=== PATIENT | female | born 1995 | race Caucasian/White ===

== ENCOUNTER 2020-03-13 08:19 | Emergency (ER) | payer OTHER, MEDICAID, SELFPAY ==
--- NOTE | 2020-03-13 08:24 | ED.GENADULT ---
HPI - General Adult General Chief complaint: Upper Respiratory Infection Stated complaint: Sinus Pressure Time Seen by Provider: 03/13/20 08:50 Source: patient Mode of arrival: ambulatory Limitations: no limitations History of Present Illness HPI narrative: 24-year-old female patient presents to the [facility] with complaints of cold symptoms for the past week. Patient states she is currently 11 weeks . Patient states she has been trying her oktk-ymj-[id number] Zyrtec that she takes daily but denies any other medications for her symptoms. Patient states she has had a lot of runny nose, stuffy nose a little bit of pressure under the eyes. And states that she has some pressure to bilateral ears intermittently. Patient denies any sore throat, coughing, chest pain or shortness of breath. Denies any fevers, body aches or chills. Related Data Home Medications Medication Instructions Recorded Confirmed PNV 119-iron fum-folic acid 1 tablet PO DAILY 03/13/20 03/13/20 [Se--19] docusate sodium [Colace] 100 mg PO DAILY 03/13/20 03/13/20 Allergies Allergy/AdvReac Type Severity Reaction Status Date / Time adhesive Allergy Unknown Unknown Verified 03/13/20 08:43 latex Allergy Unknown Unknown Verified 03/13/20 08:43 Review of Systems Review of Systems: Narrative: CONSTITUTIONAL: Denies fever, chills, or sweats. EYES: Denies visual changes, redness, or discharge. ENT: Positive rhinorrhea, congestion, denies sore throat, positive bilateral intermittent otalgia. CARDIOVASCULAR: Denies chest pain, palpitations, or edema. RESPIRATORY: Denies cough or dyspnea. GASTROINTESTINAL: Denies abdominal pain, nausea, vomiting, or diarrhea. GENITOURINARY: Denies dysuria or hematuria. SKIN: Denies rash or itching. MUSCULOSKELETAL: Denies back pain, joint pain, or myalgia. NEUROLOGIC: Denies headache, numbness, or weakness. PSYCHIATRIC: Denies anxiety or depression. [facility] Past Medical History Medical History (Updated 03/13/20 @ 09:00 by SANJUANITA Amezcua) Asthma Bipolar disorder Migraines Surgical History Surgical History (Updated 03/13/20 @ 08:51 by SANJUANITA Amezcua) History of orthopedic surgery Right knee scope History of tonsillectomy Social History Social History Gender identity (if verbalized by the patient): Female Comments At the time of my signature I agree with nursing past medical history, surgical, social, and family history. There is no relevant family history pertinent to the presenting complaint. Exam Narrative: Exam Narrative: GENERAL: Well-appearing, well-nourished, and in no acute distress. HEAD: Normocephalic, atraumatic. EYES: PERRLA and EOMI. ENT: Nares with erythema and edema noted bilaterally with the left nare swollen shut., no rhinorrhea or epistaxis. Mucous membranes moist. Bilateral TMs are clear no erythema or foreign bodies to the canal. Posterior pharynx with no erythema, tonsil enlargement, exudates or lesions present. NECK: Supple. No lymphadenopathy CHEST: Clear to auscultation. No respiratory distress. HEART: Regular rate and rhythm. No murmur heard. Normal peripheral pulses. ABDOMEN: Soft, nontender, nondistended, normal active bowel sounds. EXTREMITIES: Normal range of motion. No edema. SKIN: Warm, dry, no rash. NEURO: No focal deficits. Alert and oriented x3. Course Vital Signs Vital signs: Vital Signs Temperature 36.4 C 03/13/20 08:32 Pulse Rate 96 03/13/20 08:32 Respiratory Rate 16 03/13/20 08:32 Blood Pressure 114/72 03/13/20 08:32 Pulse Oximetry 99 03/13/20 08:32 Temperature 36.4 C 03/13/20 08:32 Pulse Rate 96 03/13/20 08:32 Respiratory Rate 16 03/13/20 08:32 Blood Pressure 114/72 03/13/20 08:32 Pulse Oximetry 99 03/13/20 08:32 Vital signs reviewed Medical Decision Making Differential Diagnosis Differential Diagnosis: Differential diagnosis: Allergic rhinitis, chr
[2020-03-13 08:32] VITALS: BP 114/72; PULSE 96; RESP 16; TEMP 36.4; O2SAT 99
== END 2020-03-13 09:05 | disposition home or self-care (01) ==
PROVIDERS: Emergency Provider Nurse Practitioner Family; PCP Family Medicine
DX: O99.511 Diseases of the respiratory system complicating pregnancy, first trimester (principal); Z3A.11 11 weeks gestation of pregnancy; J00 Acute nasopharyngitis [common cold]; J01.90 Acute sinusitis, unspecified; J30.9 Allergic rhinitis, unspecified; J45.909 Unspecified asthma, uncomplicated
CPT/HCPCS: 99211; G0463

== ENCOUNTER 2020-03-16 17:58 | Emergency (ER) | payer OTHER, MEDICAID, SELFPAY ==
[2020-03-16 18:00] VITALS: BP 149/80; PULSE 93; RESP 16; TEMP 36.4; O2SAT 99
--- NOTE | 2020-03-16 19:35 | ED.URI ---
HPI - URI/Sore Throat General Chief Complaint: Upper Respiratory Infection Stated Complaint: NASAL CONGESTION AND EAR PAIN Time Seen by Provider: 03/16/20 18:12 Source: patient Mode of arrival: ambulatory Limitations: no limitations History of Present Illness HPI Narrative: Patient presents with chief complaint of congestion in her ears over the past 2 weeks. Patient states that she has been taking Zyrtec and was seen at the urgent care but I told her that her ears were not infected at that time and if symptoms persist a few more days to have them reexamined. Patient states that she feels that her ears have been draining down the back of her throat because she has some soreness. Patient denies fever, chills, nausea, vomiting, diarrhea. Patient states she was instructed not to take decongestants or which she could take for discomfort due to being . Related Data Home Medications Medication Instructions Recorded Confirmed PNV 119-iron fum-folic acid 1 tablet PO DAILY 03/13/20 03/13/20 [Se--19] docusate sodium [Colace] 100 mg PO DAILY 03/13/20 03/13/20 cetirizine [Zyrtec] mg 03/16/20 03/16/20 Allergies Allergy/AdvReac Type Severity Reaction Status Date / Time adhesive Allergy Unknown Unknown Verified 03/16/20 18:16 latex Allergy Unknown Unknown Verified 03/16/20 18:16 Review of Systems Review of Systems: Narrative: CONSTITUTIONAL: Denies fever, chills, or sweats. EYES: Denies visual changes, redness, or discharge. ENT: Reports congestion sore throat and otalgia denies rhinorrhea CARDIOVASCULAR: Denies chest pain, palpitations, or edema. RESPIRATORY: Denies cough or dyspnea. GASTROINTESTINAL: Denies abdominal pain, nausea, vomiting, or diarrhea. GENITOURINARY: Denies dysuria or hematuria. SKIN: Denies rash or itching. MUSCULOSKELETAL: Denies back pain, myalgia, or joint pain NEUROLOGIC: Denies headache, numbness, dizziness, or weakness. PSYCHIATRIC: Denies anxiety or depression. [facility] Past Medical History Medical History (Updated 03/16/20 @ 19:40 by Sulaiman Albarran PA-C) Asthma Bipolar disorder Migraines Surgical History Surgical History (Updated 03/13/20 @ 08:51 by SANJUANITA Amezcua) History of orthopedic surgery Right knee scope History of tonsillectomy Social History Social History Gender identity (if verbalized by the patient): Female Exam Narrative: Exam Narrative: GENERAL: Well-appearing, well-nourished, and in no acute distress. HEAD: Normocephalic, atraumatic. EYES: PERRLA and EOMI. ENT: Nares clear, no rhinorrhea or epistaxis. Mucous membranes moist. nasal passages mildly congested right. Oropharynx without tonsillar hypertrophy exudate or other lesions. Bilateral TMs pearly valderrama right bulging with clear serous fluid noted. NECK: Supple. No adenopathy or masses. No carotid bruits or JVD CHEST: Clear to auscultation. No respiratory distress. No wheezes rales or rhonchi HEART: Regular rate and rhythm. No murmur heard. Normal peripheral pulses. EXTREMITIES: Normal range of motion. No edema. SKIN: Warm, dry, no rash. NEURO: No focal deficits. Alert and oriented x3. PSYCH: Normal mood and affect. Course Vital Signs Vital signs: Vital Signs Temperature 97.6 F 03/16/20 18:00 Pulse Rate 93 03/16/20 18:00 Respiratory Rate 16 03/16/20 18:00 Blood Pressure 149/80 H 03/16/20 18:00 Pulse Oximetry 99 03/16/20 18:00 Temperature 97.6 F 03/16/20 18:00 Pulse Rate 93 03/16/20 18:00 Respiratory Rate 16 03/16/20 18:00 Blood Pressure 149/80 H 03/16/20 18:00 Pulse Oximetry 99 03/16/20 18:00 MDM - URI/Sore Throat Differential Diagnosis Differential diagnosis: Likely upper respiratory infection, croup, otitis media, sinusitis, viral infection, bronchitis, influenza and pharyngitis Discharge Plan Discharge Clinical Impression: Acute serous otitis media Qualifiers: Laterality: bilateral
== END 2020-03-16 19:54 | disposition home or self-care (01) ==
PROVIDERS: Emergency Provider Emergency Medicine; PCP Family Medicine
DX: H65.03 Acute serous otitis media, bilateral (principal); J02.9 Acute pharyngitis, unspecified; J45.909 Unspecified asthma, uncomplicated; F31.9 Bipolar disorder, unspecified
CPT/HCPCS: 87880; 99283

== ENCOUNTER 2021-05-29 14:32 | Emergency (ER) | payer OTHER, MEDICAID, SELFPAY ==
[2021-05-29 14:44] VITALS: BP 124/72; PULSE 76; RESP 16; TEMP 37.1; O2SAT 100
--- NOTE | 2021-05-29 15:08 | ED.URI ---
HPI - URI/Sore Throat General Chief Complaint: Upper Respiratory Infection Stated Complaint: Sinus Time Seen by Provider: 05/29/21 15:08 Source: patient, RN notes reviewed and old records reviewed Mode of arrival: ambulatory Limitations: no limitations History of Present Illness HPI Narrative: 26-year-old female presents to the [facility] with complaints of sinus congestion along with a frontal headache for 3 days. Denies any nausea vomiting or diarrhea. Denies chest pain or abdominal pain. She is completely flu and Covid vaccinated. Related Data Allergies Allergy/AdvReac Type Severity Reaction Status Date / Time adhesive Allergy Unknown Unknown Verified 05/29/21 15:28 latex Allergy Unknown Unknown Verified 05/29/21 15:28 Review of Systems Review of Systems: All systems reviewed & are unremarkable except as noted in HPI and below Constitutional: Constitutional: Reports as per HPI, Denies chills, Reports fatigue and Reports fever(s) Eyes: Eyes: Reports no additional eye complaints ENT: Reports nasal congestion Cardiovascular: Cardiovascular: Reports no additional cardiovascular complaints and Denies chest pain Respiratory: Respiratory: Reports no additional respiratory complaints, Denies cough and Denies dyspnea Gastrointestinal: Gastrointestinal: Reports no additional gastrointestinal complaints, Denies abdominal pain, Denies nausea and Denies vomiting Musculoskeletal: Musculoskeletal: Reports no additional musculoskeletal complaints Integumentary/Breasts: Skin/Breast: Reports system reviewed and no additional complaints, except as docu Neurologic: Reports as per HPI and Reports headache(s) Psychiatric: Psychiatric: Reports no additional psychiatric complaints Allergic/Immunologic: Allergic/Immunologic: Reports no additional allergic/immunologic complaints PMFSH Past Medical History Medical History Asthma Bipolar disorder Migraines Surgical History Surgical History History of orthopedic surgery Right knee scope History of tonsillectomy Social History Social History Gender identity (if verbalized by the patient): Female Comments At the time of my signature, I reviewed and agree with the nursing past medical, surgical, social, and family history. There is no relevant family history pertinent to the patient complaint. Exam Const: General: healthy appearing, no acute distress and alert Nutritional Appearance: well nourished Orientation/consciousness: patient oriented x3 Limitations: no limitations HENMT: Head: normal to inspection Ears: external ears normal, TM's normal bilaterally and EAC's normal General nose exam: Abnormal mucous membranes and turbinates present boggy bilateral; not erythematous and Nasal discharge present clear Face and sinus: normal facial exam, no ecchymosis, no erythema and sinus tenderness frontal and maxillary Mouth: Yes Normal oral and palatal mucosa present Throat: posterior oropharynx normal, uvula midline, postnasal drainage and tonsils absent Eyes: Pupils: Equal, round and reactive pupils present Direct Ophthalmoscopy: no photophobia Neck: Neck: normal visual inspection, no lymphadenopathy and no meningeal signs Resp: Effort & Inspection: normal respiratory effort and no use of accessory muscles Auscultation: clear to auscultation bilaterally, no crackles, no rales, no rhonchi and no wheezes Cardio: Rate: regular rate Rhythm: regular rhythm GI: GI Palp: Yes Soft to palpation Back/Spine/Pelvis: Back: no CVA tenderness Skin: General skin exam: normal color Rashes: no rashes Wounds: no wounds Neuro: General: patient oriented x3, moves all extremities, no meningeal signs and no focal motor deficits Speech: normal speech Gait exam (Neuro): Normal gait present Extrem: General: normal to inspection Psych: Appeara
== END 2021-05-29 15:40 | disposition home or self-care (01) ==
PROVIDERS: Emergency Provider Nurse Practitioner; PCP Family Medicine
DX: J32.9 Chronic sinusitis, unspecified (principal); J45.909 Unspecified asthma, uncomplicated
CPT/HCPCS: 99213; G0463

== ENCOUNTER 2021-06-18 08:21 | Emergency (ER) | payer OTHER, MEDICAID, SELFPAY ==
--- NOTE | 2021-06-18 08:24 | ED.URI ---
HPI - URI/Sore Throat General Chief Complaint: Upper Respiratory Infection Stated Complaint: Sinus Infection Time Seen by Provider: 06/18/21 08:27 Source: patient, family, RN notes reviewed and old records reviewed Mode of arrival: ambulatory Limitations: no limitations History of Present Illness HPI Narrative: 26-year-old female presents to the [facility] with complaints of sinus pain and pressure for at least the last 10 days. Was evaluated on 29 May for same complaint. Patient states that over the last 10 days it is gotten worse. Has tried multiple mmnh-[id number]-skajqyg products with minimal to no relief. MD elicited complaint: sinus pain Related Data Allergies Allergy/AdvReac Type Severity Reaction Status Date / Time adhesive Allergy Unknown Unknown Verified 06/18/21 08:31 latex Allergy Unknown Unknown Verified 06/18/21 08:31 Review of Systems Review of Systems: All systems reviewed & are unremarkable except as noted in HPI and below Constitutional: Constitutional: Reports no additional constitutional complaints, Denies chills, Denies fever(s) and Denies headache(s) Eyes: Eyes: Reports no additional eye complaints ENT: Reports as per HPI, Denies vertigo, Denies dizziness, Denies headache(s), Reports nasal congestion and Denies sore throat Cardiovascular: Cardiovascular: Reports no additional cardiovascular complaints, Denies chest pain, Denies syncope, Denies rapid heart rate and Denies dyspnea Respiratory: Respiratory: Reports no additional respiratory complaints, Denies cough, Denies dyspnea and Denies wheezing Gastrointestinal: Gastrointestinal: Reports no additional gastrointestinal complaints, Denies abdominal pain, Denies diarrhea, Denies nausea and Denies vomiting Musculoskeletal: Musculoskeletal: Reports no additional musculoskeletal complaints and Denies numbness Integumentary/Breasts: Skin/Breast: Reports system reviewed and no additional complaints, except as docu Neurologic: Reports system reviewed and no additional complaints, except as documented, Denies vertigo, Denies dizziness, Denies syncope, Denies headache(s), Denies focal weakness and Denies numbness Psychiatric: Psychiatric: Reports no additional psychiatric complaints Allergic/Immunologic: Allergic/Immunologic: Reports no additional allergic/immunologic complaints and Denies wheezing PMFSH Past Medical History Medical History Asthma Bipolar disorder Migraines Surgical History Surgical History History of orthopedic surgery Right knee scope History of tonsillectomy Social History Social History Gender identity (if verbalized by the patient): Female Comments At the time of my signature, I reviewed and agree with the nursing past medical, surgical, social, and family history. There is no relevant family history pertinent to the patient complaint. Exam Const: General: cooperative, healthy appearing, no acute distress, well developed and alert Nutritional Appearance: well nourished Orientation/consciousness: patient oriented x3 Limitations: no limitations HENMT: Head: normal to inspection Ears: external ears normal and EAC's normal General nose exam: Normal external nose present, Abnormal mucous membranes and turbinates present boggy bilateral; not erythematous and no nasal discharge noted Face and sinus: sinus tenderness maxillary Mouth: Yes moist mucous membranes Throat: uvula midline, postnasal drainage, tonsils absent and no uvular edema Eyes: Conjunctivae: conjunctivae normal Pupils: Equal, round and reactive pupils present Neck: Neck: normal visual inspection, no lymphadenopathy and no meningeal signs Chest: Chest palpation & inspection: normal inspection of the chest Resp: Effort & Inspection: normal respiratory effort and no use of accessory muscles Auscultation: clear to ausculta
[2021-06-18 08:28] VITALS: BP 133/54; PULSE 99; RESP 20; TEMP 36; O2SAT 99
== END 2021-06-18 08:49 | disposition home or self-care (01) ==
PROVIDERS: Emergency Provider Nurse Practitioner; PCP Family Medicine
DX: J01.40 Acute pansinusitis, unspecified (principal); J45.909 Unspecified asthma, uncomplicated
CPT/HCPCS: 99213; G0463

== ENCOUNTER 2021-09-03 18:20 | Emergency (ER) | payer OTHER, SELFPAY ==
--- NOTE | 2021-09-03 18:26 | ED.URI ---
HPI - URI/Sore Throat General Chief Complaint: Upper Respiratory Infection Stated Complaint: Uri Time Seen by Provider: 09/03/21 18:45 Source: patient and RN notes reviewed Mode of arrival: ambulatory Limitations: no limitations History of Present Illness HPI Narrative: 26-year-old female presents with 1-1/2-week history of sinus pressure, congestion, purulent nasal drainage. Reports taking lhlg-lfr-hjgjtag medications without relief. Reports other family members who are ill. She denies cough, shortness of breath, body aches, chills, fever, sweats. Reports ear pressure MD elicited complaint: rhinorrhea, nasal congestion and sinus pain Related Data Home Medications Medication Instructions Recorded Confirmed cetirizine [Zyrtec] 10 mg PO DAILY 09/03/21 09/03/21 Allergies Allergy/AdvReac Type Severity Reaction Status Date / Time adhesive Allergy Unknown Unknown Verified 09/03/21 18:27 latex Allergy Unknown Unknown Verified 09/03/21 18:27 Review of Systems Review of Systems: CONSTITUTIONAL: Denies malaise, chills, sweats, or fever. EYES: Denies visual changes, redness, or discharge. ENT: Reports rhinorrhea, congestion, sinus pain, otalgia. Denies sore throat. CARDIOVASCULAR: Denies chest pain, palpitations, or edema. RESPIRATORY: Denies cough. Denies dyspnea. GASTROINTESTINAL: Denies abdominal pain, nausea, vomiting, diarrhea SKIN: Denies rash or itching. MUSCULOSKELETAL: Denies myalgia. NEUROLOGIC: Denies headache. All systems reviewed & are unremarkable except as noted in HPI and below PMFSH Past Medical History Medical History Asthma Bipolar disorder Migraines Surgical History Surgical History History of orthopedic surgery Right knee scope History of tonsillectomy Social History Social History Gender identity (if verbalized by the patient): Female Comments At time of signature, agree with nursing past medical, surgical, social and family history. There is no relevant family history pertinent to the presenting complaint Exam Narrative: GENERAL: Well-appearing, well-nourished, and in no acute distress. HEAD: Normocephalic EYES: PERRLA, conjunctivae clear ENT: Nares clear, turbinates edematous and erythematous, sinus tenderness. Mucous membranes moist. TM pearly valderrama with dull light reflex bilaterally; no tragal tenderness. Oropharynx not erythematous without lesions. Tonsils not enlarged and without exudate, no drooling, no hoarseness, no trismus, uvula midline. NECK: Supple. No lymphadenopathy CHEST: Clear to auscultation, breath sounds equal. No wheezing, rhonchi, rales, or stridor. No respiratory distress, speaks in full sentences. HEART: Regular rate and rhythm. No murmur heard. SKIN: Warm, dry, no rash. NEURO: Alert and oriented x3. PSYCH: Normal mood and affect Course Course Emergency Course: Patient is aware of diagnosis, understands and agrees to treatment plan. Anticipatory guidance given. Patient agrees to follow-up as directed and is aware of reasons to seek care at the emergency department. Portions of this record may have been created with voice recognition software Level of Care: Express Care Visit Vital Signs Vital signs: Reviewed. MDM - URI/Sore Throat MDM Narrative Medical decision making narrative: Differential diagnosis considered: Martinez virus, strep pharyngitis, allergic rhinitis, upper respiratory tract infection, sinusitis, rhinosinusitis, nasopharyngitis. viral pharyngitis, otitis media, otitis externa, pneumonia, bronchitis, viral cough syndrome, viral syndrome, and influenza. Exam findings show no acute concerns or changes; patient is non-toxic appearing and is in no distress. Patient is appropriate for outpatient treatment and follow-up. Lab Data Attestation: I reviewed the patient's lab results. Critical Care Time Criti
[2021-09-03 18:36] VITALS: BP 119/74; PULSE 88; RESP 16; TEMP 36.4; O2SAT 99
== END 2021-09-03 19:05 | disposition home or self-care (01) ==
PROVIDERS: Emergency Provider Nurse Practitioner
DX: J01.90 Acute sinusitis, unspecified (principal); J45.909 Unspecified asthma, uncomplicated
CPT/HCPCS: 99213; G0463

== ENCOUNTER 2021-10-28 08:25 | Emergency (ER) | payer BC, SELFPAY ==
[2021-10-28 08:43] VITALS: BP 109/85; PULSE 96; RESP 16; TEMP 36.9; O2SAT 99
--- NOTE | 2021-10-28 09:09 | ED.URI ---
HPI - URI/Sore Throat General Chief Complaint: Upper Respiratory Infection Stated Complaint: uri Time Seen by Provider: 10/28/21 09:09 Source: patient Mode of arrival: ambulatory Limitations: no limitations History of Present Illness HPI Narrative: 26-year-old female presents with complaint of sore throat, sinus congestion, bilateral ear pain, postnasal drainage, mild cough for 3 to 4 days. Afebrile. No chest pain or shortness of breath. Reports throat is really sore . Daughter is also ill with similar symptoms. Patient taking qqjy-ywq-exsyowr cold and flu medication with little relief. All systems reviewed and negative except as noted above. Related Data Allergies Allergy/AdvReac Type Severity Reaction Status Date / Time adhesive Allergy Unknown Unknown Verified 10/28/21 09:27 latex Allergy Unknown Unknown Verified 10/28/21 09:27 Review of Systems Review of Systems: CONSTITUTIONAL: Denies fever, chills, or sweats. EYES: Denies visual changes, redness, or discharge. ENT: Reports rhinorrhea, congestion, sore throat and otalgia. CARDIOVASCULAR: Denies chest pain, palpitations, or edema. RESPIRATORY: Reports cough. Denies dyspnea. GASTROINTESTINAL: Denies abdominal pain, nausea, vomiting, or diarrhea. GENITOURINARY: Denies dysuria or hematuria. SKIN: Denies rash or itching. MUSCULOSKELETAL: Denies back pain, joint pain, or myalgia. NEUROLOGIC: Denies headache, numbness, or weakness. PSYCHIATRIC: Denies anxiety or depression. All other systems reviewed are negative, except as documented in HPI. PMFSH Past Medical History Medical History Asthma Bipolar disorder Migraines Surgical History Surgical History History of orthopedic surgery Right knee scope History of tonsillectomy Social History Social History Gender identity (if verbalized by the patient): Female Comments At time of signature, agree with nursing past medical, surgical, social and family history. There is no relevant family history pertinent to the presenting complaint. Exam Narrative: GENERAL: This is a well-nourished, well-developed patient, in no apparent distress. HEAD: normocephalic, atraumatic. EYES: PERRL. Sclera clear/white. Vision is grossly intact. EARS: External ears normal, auditory canals clear and without drainage, mild fluid to bilateral TMs no erythema or perforation. NOSE: External nose normal with clear nasal drainage. THROAT: Mucous membranes moist, posterior pharynx clear. NECK: Neck supple, non-tender without lymphadenopathy, masses or thyromegaly. CARDIOVASCULAR: Regular rate and rhythm without murmurs, gallops, or rubs. RESPIRATORY: Clear to auscultation. Breath sounds equal bilaterally. No wheezes, rales, or rhonchi. SKIN: warm, Dry, intact with no suspicious lesions or rash, good texture and turgor. NEURO: awake, alert, and oriented to person, place and time. There were no obvious focal neurologic abnormalities. EXTREMITIES: Normal range of motion to all extremities. Course Course Level of Care: Express Care Visit Vital Signs Vital signs: Vital Signs Temperature 36.9 C 10/28/21 08:43 Pulse Rate 96 10/28/21 08:43 Respiratory Rate 16 10/28/21 08:43 Blood Pressure 109/85 10/28/21 08:43 Pulse Oximetry 99 10/28/21 08:43 Oxygen Delivery Room Air 10/28/21 08:43 Temperature 36.9 C 10/28/21 08:43 Pulse Rate 96 10/28/21 08:43 Respiratory Rate 16 10/28/21 08:43 Blood Pressure 109/85 10/28/21 08:43 Pulse Oximetry 99 10/28/21 08:43 Oxygen Delivery Room Air 10/28/21 08:43 Reviewed MDM - URI/Sore Throat MDM Narrative Medical decision making narrative: Patient is aware of diagnosis, understands and agrees to treatment plan. Anticipatory guidance given. Patient agrees to follow-up as directed and is aware of reasons to seek c
== END 2021-10-28 09:50 | disposition home or self-care (01) ==
PROVIDERS: Emergency Provider Nurse Practitioner Family; PCP Family Medicine
DX: J01.90 Acute sinusitis, unspecified (principal); Z20.822 Contact with and (suspected) exposure to COVID-19; J45.909 Unspecified asthma, uncomplicated
CPT/HCPCS: 87081; 87426; 87880; 99213; C9803; G0463

== ENCOUNTER 2022-03-20 08:06 | Emergency (ER) | payer BC, SELFPAY ==
--- NOTE | 2022-03-20 08:08 | ED.URI ---
HPI - URI/Sore Throat General Chief Complaint: Upper Respiratory Infection Stated Complaint: Sinus Time Seen by Provider: 03/20/22 08:16 Source: patient and RN notes reviewed Mode of arrival: ambulatory Limitations: no limitations History of Present Illness HPI Narrative: 26-year-old female presents to the [facility] with complaints of sinus issues since Saturday night, less than 2 days. Patient is 9 weeks . OB is in [place]. Patient reports that she tried taking Delsym and Zyrtec one time. Has not taken her temperature. Cap[place] chilled yesterday. Patient reports that she had chronic sinus issues with her daughter throughout her entire . MD elicited complaint: rhinorrhea and nasal congestion Onset (ago): day(s) (less then 2 days) Relieving factors: nothing Treatments prior to arrival: cold medicine (1 dose) Related Data Home Medications Medication Instructions Recorded Confirmed cetirizine 10 mg tablet (Zyrtec) 10 mg PO DAILY 03/20/22 03/20/22 Allergies Allergy/AdvReac Type Severity Reaction Status Date / Time adhesive Allergy Unknown Unknown Verified 03/20/22 08:13 latex Allergy Unknown Unknown Verified 03/20/22 08:13 Review of Systems Review of Systems: All systems reviewed & are unremarkable except as noted in HPI and below Constitutional: Constitutional: Reports no additional constitutional complaints, Denies chills and Denies fever(s) Eyes: Eyes: Reports no additional eye complaints ENT: Reports as per HPI and Reports nasal congestion Cardiovascular: Cardiovascular: Reports no additional cardiovascular complaints Respiratory: Respiratory: Reports no additional respiratory complaints Gastrointestinal: Gastrointestinal: Reports no additional gastrointestinal complaints Musculoskeletal: Musculoskeletal: Reports no additional musculoskeletal complaints Integumentary/Breasts: Skin/Breast: Reports system reviewed and no additional complaints, except as docu Neurologic: Reports system reviewed and no additional complaints, except as documented Psychiatric: Psychiatric: Reports no additional psychiatric complaints Allergic/Immunologic: Allergic/Immunologic: Reports no additional allergic/immunologic complaints PMF Past Medical History Medical History Asthma Bipolar disorder Migraines Surgical History Surgical History History of orthopedic surgery Right knee scope History of tonsillectomy Social History Social History Gender identity (if verbalized by the patient): Female Comments At the time of my signature, I reviewed and agree with the nursing past medical, surgical, social, and family history. There is no relevant family history pertinent to the patient complaint. Exam Const: General: healthy appearing, no acute distress, alert and well nourished Nutritional Appearance: well nourished Orientation/consciousness: patient oriented x3 Limitations: no limitations HENMT: Head: normal to inspection Ears: external ears normal, TM's normal bilaterally and EAC's normal Face/Nose/Sinus: Normal external nose present and Normal nares present Face and sinus: normal facial exam Mouth: Yes Normal oral and palatal mucosa present, Yes lip normal and Yes moist mucous membranes Throat: posterior oropharynx normal and uvula midline Eyes: General: appearance normal, both eyes and all related structures Conjunctivae: conjunctivae normal Pupils: Equal, round and reactive pupils present EOM: EOMs intact bilaterally Neck: Neck: normal visual inspection, no lymphadenopathy and no meningeal signs Chest: Chest palpation & inspection: normal inspection of the chest Resp: Effort & Inspection: normal respiratory effort and no use of accessory muscles Auscultation: clear to auscultation bilaterally, no crackles, no rales, no rhonchi and
[2022-03-20 08:14] VITALS: BP 115/79; PULSE 99; RESP 16; TEMP 37.1; O2SAT 100
== END 2022-03-20 08:30 | disposition home or self-care (01) ==
PROVIDERS: Emergency Provider Nurse Practitioner; PCP Family Medicine
DX: O99.511 Diseases of the respiratory system complicating pregnancy, first trimester (principal); Z3A.09 9 weeks gestation of pregnancy; J01.10 Acute frontal sinusitis, unspecified; J45.909 Unspecified asthma, uncomplicated
CPT/HCPCS: 99211; G0463

== ENCOUNTER 2022-04-08 08:32 | Emergency (ER) | payer BC, SELFPAY ==
[2022-04-08 08:42] VITALS: BP 114/61; PULSE 69; RESP 16; TEMP 36; O2SAT 100
--- NOTE | 2022-04-08 09:05 | ED.URI ---
HPI - URI/Sore Throat General Chief Complaint: Upper Respiratory Infection Stated Complaint: Sinus Time Seen by Provider: 04/08/22 09:05 Source: patient Mode of arrival: ambulatory Limitations: no limitations History of Present Illness HPI Narrative: 26-year-old female presents with complaint of sinus congestion, pressure, nasal congestion, postnasal drainage for 2-3 weeks. Taking Zyrtec daily, was using Flonase until the bottle right now. . OBGYN when symptoms 1st started and was told to take Mucinex and Delsym. No longer congested and just or coughing, congestion settled in sinuses . Concerned she has a sinus infection. Afebrile. All systems reviewed and negative except as noted above. Related Data Home Medications Medication Instructions Recorded Confirmed cetirizine 10 mg tablet (Zyrtec) 10 mg PO DAILY 03/20/22 03/20/22 Allergies Allergy/AdvReac Type Severity Reaction Status Date / Time adhesive Allergy Unknown Unknown Verified 03/20/22 08:13 latex Allergy Unknown Unknown Verified 03/20/22 08:13 Review of Systems Review of Systems: CONSTITUTIONAL: Denies fever, chills, or sweats. EYES: Denies visual changes, redness, or discharge. ENT: Reports rhinorrhea, congestion, sinus pressure. Denies sore throat, or otalgia. CARDIOVASCULAR: Denies chest pain, palpitations, or edema. RESPIRATORY: Denies cough or dyspnea. GASTROINTESTINAL: Denies abdominal pain, nausea, vomiting, or diarrhea. GENITOURINARY: Denies dysuria or hematuria. SKIN: Denies rash or itching. MUSCULOSKELETAL: Denies back pain, joint pain, or myalgia. NEUROLOGIC: Denies headache, numbness, or weakness. PSYCHIATRIC: Denies anxiety or depression. All other systems reviewed are negative, except as documented in HPI. [facility] Past Medical History Medical History Asthma Bipolar disorder Migraines Surgical History Surgical History History of orthopedic surgery Right knee scope History of tonsillectomy Social History Social History Gender identity (if verbalized by the patient): Female Comments At time of signature, agree with nursing past medical, surgical, social and family history. There is no relevant family history pertinent to the presenting complaint. Exam Narrative: GENERAL: This is a well-nourished, well-developed patient, in no apparent distress. HEAD: normocephalic, atraumatic. EYES: PERRL. Sclera clear/white. Vision is grossly intact. EARS: External ears normal, auditory canals clear and without drainage, mild fluid bilateral TMs without perforation. NOSE: External nose normal with Clear nasal drainage, erythema to both nares. Moderate congestion, bilateral maxillary sinus tenderness. THROAT: Mucous membranes moist, posterior pharynx clear. NECK: Neck supple, non-tender without lymphadenopathy, masses or thyromegaly. CARDIOVASCULAR: Regular rate and rhythm without murmurs, gallops, or rubs. RESPIRATORY: Clear to auscultation. Breath sounds equal bilaterally. No wheezes, rales, or rhonchi. SKIN: warm, Dry, intact with no suspicious lesions or rash, good texture and turgor. NEURO: awake, alert, and oriented to person, place and time. There were no obvious focal neurologic abnormalities. EXTREMITIES: No joint tenderness, effusion, or edema noted. Course Course Level of Care: Express Care Visit Vital Signs Vital signs: Vital Signs Temperature 36.0 C L 04/08/22 08:42 Pulse Rate 69 04/08/22 08:42 Respiratory Rate 16 04/08/22 08:42 Blood Pressure 114/61 04/08/22 08:42 Pulse Oximetry 100 04/08/22 08:42 Oxygen Delivery Room Air 04/08/22 08:42 Temperature 36.0 C L 04/08/22 08:42 Pulse Rate 69 04/08/22 08:42 Respiratory Rate 16 04/08/22 08:42 Blood Pressure 114/61 04/08/22 08:42 Pulse Oximetry 100 04/08/22 08:42 Oxygen De
== END 2022-04-08 09:16 | disposition home or self-care (01) ==
PROVIDERS: Emergency Provider Nurse Practitioner Family; PCP Family Medicine
DX: J01.90 Acute sinusitis, unspecified (principal); J45.909 Unspecified asthma, uncomplicated
CPT/HCPCS: 99213; G0463

== ENCOUNTER 2022-10-18 06:12 | Inpatient (IN) | payer OTHER, MEDICAID, SELFPAY ==
[2022-10-18] VITALS (84 sets, daily range): BP systolic 90–149; BP diastolic 46–87; PULSE 33–123; RESP 16–18; TEMP 36.3–37.1; O2SAT 92–100; BMI 34.9
--- NOTE | 2022-10-18 06:38 | P.HP_ITS ---
H&P: HPI History of Present Illness Date/Time: 10/18/22 06:38 Chief Complaint: medical induction of labor at term Narrative: 27-year-old 3 para 2 whose last menstrual period gives an EDC of 10/23/2022 presents at 40 weeks gestation for induction of labor. She is positive for group B strep. Her has been relatively uncomplicated outside the group B strep [facility] Past Medical History Medical History Asthma Bipolar disorder Migraines Surgical History Surgical History History of orthopedic surgery Right knee scope History of tonsillectomy Family History Family History Father Diabetes mellitus Hypertension Social History Social History Substance use: never Gender identity (if verbalized by the patient): Female Spiritual care concerns: No Meds Home Medications and Allergies Home Medications Medication Instructions Recorded Confirmed Type cetirizine 10 mg tablet (Zyrtec) 10 mg PO DAILY 03/20/22 04/08/22 History prenat.vits,nubia,[id number]-fapem 1 tablet PO HS 09/29/22 09/29/22 History Allergies Allergy/AdvReac Type Severity Reaction Status Date / Time adhesive Allergy Unknown Unknown Verified 09/29/22 12:38 latex Allergy Unknown Unknown Verified 09/29/22 12:38 Exam Const: General: cooperative, healthy appearing and comfortable Nutritional Appearance: average body habitus Orientation/consciousness: oriented to person, oriented to place and oriented to time HENMT: Head: normal to inspection Resp: Effort & Inspection: normal respiratory effort Cardio: Rate: regular rate Rhythm: regular rhythm Heart sounds: S1 normal heart sound present and S2 normal heart sound present GI: Inspection: normal to inspection ( gravid soft uterus) : External Female Exam: normal external appearance Speculum Exam - Vagina: normal appearance of the vagina ( heart tones reassuring) Assessment and Plan Assessment and plan (1) Term : Code(s): Z34.90 - Encounter for supervision of normal , unspecified, unspecified trimester Status: Acute (2) Positive testing for group B Streptococcus: Code(s): B95.1 - Streptococcus, group B, as the cause of diseases classified elsewhere Status: Acute Plan medical induction of labor. Spontaneous vaginal delivery is expected. Group B strep prophylaxis will be undertaken. She has an epidural candidate
[2022-10-18 07:06] LABS: Basophils Percent Auto 0.2 % (0.2-1.2); Eosinophils Percent Auto 0.4 % (0-4.4); Hematocrit 31.6 % (37.0-47.0); Hemoglobin 10.3 g/dL (12.0-15.0); Immature Granulocyte Absolute 0.14 K/mm3 (0.00-0.031); Immature Granulocyte Percent A 1.4 % (0-0.5); Lymphocytes Absolute Auto 1.53 K/mm3 (0.9-3.2); Lymphocytes Percent Auto 15.7 % (18.3-44.2); Mean Corpuscular HGB Conc 32.6 g/dl (32-36); Mean Corpuscular Hemoglobin 29.9 pg (26-34); Mean Corpuscular Volume 91.6 fl (80-100); Mean Platelet Volume 8.9 fl (7.4-10.4); Monocytes Absolute Auto 0.6 K/mm3 (0.1-0.6); Monocytes Percent Auto 6.2 % (2.6-8.5); Neutrophils Absolute Auto 7.4 K/mm3 (1.3-6.7); Neutrophils Percent Auto 76.1 % (45.5-73.1); Platelet Count Result 200 k/mm3 (150-375); Red Blood Count 3.45 M/mm3 (4.2-5.4); Red Cell Distribution Width 14.3 % (11.5-14.5); White Blood Count 9.7 K/mm3 (4.5-10.0)
[2022-10-18] MEDS: AMPICILLIN 2 GM/NS 100 ML 2 GM/100 ML BAG IVPB (07:11)
[2022-10-18] MEDS: LACTATED RINGERS 1,000 ML 125 ML IV CONT ×3 (07:11→13:32)
--- NOTE | 2022-10-18 07:49 | LDADM ---
This patient, Lillian Feng, was admitted to Labor/Delivery/Recovery 104 on 10/18/22 at 06:12. Plans for labor, pain management and were discussed with patient. Patient/family oriented to hospital policies and general routines including ID bracelet, bed and alarms, visiting hours, pain management, procedures, bathroom and other care routines, personal items, smoking policy, room service/diet and guest tray routines, infant security routines, and visiting hours. Patient/Family are encouraged to report perceived risks to care and to ask questions if they do not understand what they are told or what they should do. See OBIX for further documentation.
[2022-10-18] MEDS: OXYTOCIN 30 UNITS/NS 500 ML 30 UNITS/500 ML BAG IV CONT (08:24)
[2022-10-18 08:53] LABS: Rapid Plasma Reagin Non-Reactive (NonReactive)
[2022-10-18] MEDS: CALCIUM CARBONATE (TUMS) 500 MG (200 MG ELEMENTAL) PO ×2 (08:55→14:16)
[2022-10-18] MEDS: AMPICILLIN 1 GM/NS 50 ML 1 GM/50 ML BAG IVPB (11:29)
--- NOTE | 2022-10-18 12:18 | PM.OBPNLAB ---
Pain Control Date/time seen: 10/18/22 12:18 Pain control: tolerating well and epidural Pelvic Exam Dilation (cm): 4 Effacement (%): 90 station: -1 Amniotic membrane status: Leaking Contractions Monitor mode: Internal
[2022-10-18] MEDS: ONDANSETRON INJ 4 MG/2 ML VIAL IV PUSH (13:13)
--- NOTE | 2022-10-18 13:37 | WPDANESEPPF ---
Anes - Initial Pre Proc Eval Procedure: labor epidural Date/Time: 10/18/22 13:37 Surgeon: Jarad Farnsworth MD Pre Op Diagnosis: labor pain Pre Op Diagnosis: IOL Patient Data Age: 27 Gender: F Height: 1.7 m Weight: 101 kg Last Vital Signs Temp 36.3 C L 10/18/22 08:24 Pulse 78 10/18/22 13:34 Resp 18 10/18/22 08:24 BP 120/59 L 10/18/22 13:34 Pulse Ox 99 10/18/22 13:35 O2 Del Method Room Air 10/18/22 07:44 Allergies Allergy/AdvReac Type Severity Reaction Status Date / Time adhesive Allergy Unknown Unknown Verified 10/18/22 07:51 latex Allergy Unknown Unknown Verified 09/29/22 12:38 Home Medications Medication Instructions Recorded Confirmed Type cetirizine 10 mg tablet (Zyrtec) 10 mg PO DAILY 03/20/22 10/18/22 History prenat.vits,nubia,tos-nplp-mtpix 1 tablet PO HS 09/29/22 10/18/22 History Laboratory Tests 10/18/22 07:01 WBC 9.7 K/mm3 (4.5-10.0) RBC 3.45 L M/mm3 (4.2-5.4) Hgb 10.3 L g/dL (12.0-15.0) Hct 31.6 L % (37.0-47.0) MCV 91.6 fl (80-100) MCH 29.9 pg (26-34) MCHC 32.6 g/dl (32-36) RDW 14.3 % (11.5-14.5) Plt Count 200 k/mm3 (150-375) MPV 8.9 fl (7.4-10.4) Immature Gran % (Auto) 1.4 H % (0-0.5) Neut % (Auto) 76.1 H % (45.5-73.1) Lymph % (Auto) 15.7 L % (18.3-44.2) Giles % (Auto) 6.2 % (2.6-8.5) Eos % (Auto) 0.4 % (0-4.4) Baso % (Auto) 0.2 % (0.2-1.2) Lymph # (Auto) 1.53 K/mm3 (0.9-3.2) Giles # (Auto) 0.6 K/mm3 (0.1-0.6) Eos # (Auto) 0.0 K/mm3 (0-0.3) Baso # (Auto) 0.0 K/mm3 (0.0-0.1) Abs Immat Gran (auto) 0.14 H K/mm3 (0.00-0.031) Absolute Neuts (auto) 7.4 H K/mm3 (1.3-6.7) Absolute Nucleated RBC 0.0 K/mm3 (0.0-0.012) Nucleated RBC % 0.0 % (0.0-0.2) RPR Non-reactive (NonReactive) Blood Type A Positive Antibody Screen Negative Patient hx anesthesia problems: none Family hx anesthesia problems: none Results Review: All pre-operative results and documents have been reviewed as part of the pre-operative evaluation. [facility]LY [facility] Past Medical History Medical History Asthma Bipolar disorder Migraines Surgical History Surgical History History of orthopedic surgery Right knee scope History of tonsillectomy Family History Family History Father Diabetes mellitus Hypertension Social History Social History Smoking packs per day: 0.5 Smoking cigarettes per day: 10.0 Years smoked: 1.5 Smoking pack-years: 0.75 Smoking status: Former smoker Tobacco type: cigarettes Substance use: never Lack of Transportation: No Lack of Food: Never True Current Housing: I Have Housing Concerned About Future Housing: No Difficulty Paying Gas/Electric Bills: No Difficulty Paying for Meds: No Currently Unemployed: No Education: High School Diploma/GED Difficulty w/ Childcare or Family Care: No Gender identity (if verbalized by the patient): Female Spiritual care concerns: No Anes - Eval Final PreProcedure Day of Procedure 10/18/22 13:37 Patient weight: obese ASA classification: III Anesthetic plan: proceed Anesthesia type and monitoring: regional epidural and standard monitoring Results Review: All pre-operative results and documents have been reviewed as part of the pre-operative evaluation. Informed Consent: The patient's anesthetic plan and its attendant risks and benefits were discussed with the patient/family/POA. Questions were solicited and answers provided to the satisfaction of the patient/family/POA.
--- NOTE | 2022-10-18 14:48 | PM.OBPRVD ---
OB - Delivery Note Procedure Delivery date: 10/18/22 Procedure: mil Events: Positive Group B Strep (GBS) Induction method: AROM Delivery augmentation: Pitocin Delivery monitor: External FHT and Internal Uterine Route of delivery: Episiotomy description: None Laceration Description: None Quantitative Blood Loss (ml): 60 Anesthesia type: Epidural Disposition: Floor Baby Date of : 10/18/22 Time of : 14:41 Weeks of gestation at delivery: 39 gender: Female Weight (pounds): 8 Weight (ounces): 12 presentation: vertex position: Right Occiput Anterior Placenta delivery description: Spontaneous Cord Vessel Description: 3 Vessels and Delayed Cord Clamping score one minute: 9 score five minutes: 9 Narrative: amp x 2 for gbs
[2022-10-18] MEDS: OXYTOCIN 30 UNITS/NS 500 ML 30 UNITS/500 ML BAG 125 UNITS IV CONT (15:11)
--- NOTE | 2022-10-18 17:50 | PC.NURSE ---
Patient transferred to post room #290 via wheelchair. Support person present. Oriented to unit, room, information board, rooming in, admission packet and security measures. Patient verbalizes understanding.
[2022-10-19] VITALS (11 sets, daily range): BP systolic 100–128; BP diastolic 53–87; PULSE 71–99; RESP 16–23; TEMP 36.2–37.1; O2SAT 94–100
[2022-10-19 05:34] LABS: Hematocrit 31.3 % (37.0-47.0); Hemoglobin 10.1 g/dL (12.0-15.0)
--- NOTE | 2022-10-19 06:46 | P.PNOB_ITS ---
OB - PN: Subj Subjective Date/time seen: 10/19/22 06:46 Patient comments: no complaints and pain well controlled baby status: doing well Narrative: dsires btl OB - PN: Obj Data Labs 10/19/22 04:47 Labs: Laboratory Results - last 24 hr 10/18/22 10/19/22 07:01 04:47 WBC 9.7 RBC 3.45 L Hgb 10.3 L 10.1 L Hct 31.6 L 31.3 L MCV 91.6 MCH 29.9 MCHC 32.6 RDW 14.3 Plt Count 200 MPV 8.9 Immature Gran % (Auto) 1.4 H Neut % (Auto) 76.1 H Lymph % (Auto) 15.7 L [place] % (Auto) 6.2 Eos % (Auto) 0.4 Baso % (Auto) 0.2 Lymph # (Auto) 1.53 [place] # (Auto) 0.6 Eos # (Auto) 0.0 Baso # (Auto) 0.0 Abs Immat Gran (auto) 0.14 H Absolute Neuts (auto) 7.4 H Absolute Nucleated RBC 0.0 Nucleated RBC % 0.0 RPR Non-reactive Blood Type A Positive Antibody Screen Negative OB - PN A/P Plan day: 1 Plan: routine care Comments: Proceed with bilateral tubal ligation today Time Spent With Patient Time: Total time spent is greater than 50% in coordination of care (as documented) at patient's floor/unit and/or counseling patient: Exam Const: General: cooperative, healthy appearing and comfortable Nutritional Appearance: average body habitus Orientation/consciousness: oriented to person, oriented to place and oriented to time HENMT: Head: normal to inspection Resp: Effort & Inspection: normal respiratory effort Cardio: Rate: regular rate Rhythm: regular rhythm Heart sounds: S1 normal heart sound present and S2 normal heart sound present GI: Inspection: normal to inspection
--- NOTE | 2022-10-19 06:48 | WPDHPUPDATE1 ---
History and Physical Update Update Date/Time: 10/19/22 06:48 History and Physical has been reviewed, including an updated exam of the patient. There are NO changes in the patient's condition. Risks, benefits, and alternatives have been discussed and questions answered. Patient agrees to proceed with procedure. patient desires bilateral tubal ligation. This was reviewed throughout her and she understands permanence failure rates and risks and benefits
--- NOTE | 2022-10-19 09:02 | PM.DS ---
DS: Admitting Diagnosis Discharge Date 10/20/2022 Admitting Diagnosis term /group B strep/sterilization DS: Discharge Diagnosis Discharge Diagnosis (1) Positive testing for group B Streptococcus: Code(s): B95.1 - Streptococcus, group B, as the cause of diseases classified elsewhere Status: Acute (2) Term : Code(s): Z34.90 - Encounter for supervision of normal , unspecified, unspecified trimester Status: Acute (3) Sterilization: Code(s): Z30.2 - Encounter for sterilization Status: Acute DS: Summary Hospital Course Reason for hospitalization: patient was admitted for induction of labor at term positive group B strep and desire for permanent sterilization. Hospital Course: Patient underwent successful spontaneous vaginal delivery. Day 1 she had a tubal. She remained afebrile. She was up, voiding without difficulty, eating regular diet, ambulating, in general without complaints. Time Spent with Patient Time attestation: Total time spent providing and/or coordinating discharge services: Exam Const: General: cooperative, healthy appearing, comfortable and well groomed Nutritional Appearance: average body habitus Orientation/consciousness: oriented to person, oriented to place and oriented to time HENMT: Head: normal to inspection Resp: Effort & Inspection: normal respiratory effort Cardio: Rate: regular rate Rhythm: regular rhythm Heart sounds: S1 normal heart sound present and S2 normal heart sound present GI: Inspection: normal to inspection and incision ( Wound clean dry and intact) Auscultation: normal bowel sounds DS: Data Data Completed and Pending Labs on day of discharge: Labs from last 24 hours 10/19/22 04:47 Hgb 10.1 L Hct 31.3 L Discharge Plan Discharge Attending physician on discharge: Jarad Garcia Discharging Clinician: Jarad Garcia Patient Disposition: Home, Self-Care Activity: may shower and pelvic rest Diet: heart healthy Wound Care Instructions: follow printed instructions Patient Instructions: Antibiotic Form Stand Alone Forms: General Discharge Information Follow-up/Referrals: Jarad Garcia MD [Physician] - Discharge Medications: New hydrocodone-acetaminophen 5-325 mg tablet 1 tablet PO Q4H PRN (Reason: pain) Qty: 14 0RF Continued cetirizine [Zyrtec] 10 mg Tablet 10 mg PO DAILY #2 Tablet 1 tablet PO HS Date of admission: 10/18/22 06:12 Primary Care Provider: Jillian,Radha Musa Admitting Provider: Jarad Garcia Attending physician on admission: Jarad Garcia Condition: Stable
--- NOTE | 2022-10-19 11:42 | PC.NURSE ---
[id number] Consents signed and placed in chart for tubal ligation. Pt scheduled for surgery @ 2601 today.
--- NOTE | 2022-10-19 14:58 | WPDANLDPN2 ---
Anes-Prog Note L&D Date/Time: 10/19/22 14:58 Neuro status: Neuro function grossly intact. Vital Signs: Last Vital Signs Temp 36.7 C 10/19/22 11:48 Pulse 73 10/19/22 11:48 Resp 18 10/19/22 11:48 BP 103/61 10/19/22 11:48 Pulse Ox 98 10/19/22 11:48 O2 Del Method Room Air 10/18/22 07:44 Pain score (VAS): 0 I/O: Intake & Output 10/18/22 10/19/22 10/19/22 23:59 07:59 15:59 Intake Total 500 Output Total 160 Balance 340 Patient feedback: Patient satisfied with anesthetic care.
--- NOTE | 2022-10-19 15:08 | PC.NURSE ---
1503 Pre Op RN, Kirti, and staff here to take patient from 290 to pre-op for her tubal ligation.
--- NOTE | 2022-10-19 15:13 | WPDANESEPPF ---
Anes - Initial Pre Proc Eval Procedure: Operation Date: 10/19/22 16:15 Proposed Procedures p Post- Tubal Ligation - Jarad Farnsworth MD Date/Time: 10/19/22 15:13 Surgeon: Jarad Farnsworth MD Pre Op Diagnosis: IOL Patient Data Age: 27 Gender: F Height: 1.7 m Weight: 101 kg Last Vital Signs Temp 36.7 C 10/19/22 11:48 Pulse 73 10/19/22 11:48 Resp 18 10/19/22 11:48 BP 103/61 10/19/22 11:48 Pulse Ox 98 10/19/22 11:48 O2 Del Method Room Air 10/18/22 07:44 Allergies Allergy/AdvReac Type Severity Reaction Status Date / Time adhesive Allergy Unknown Unknown Verified 10/18/22 07:51 latex Allergy Unknown Unknown Verified 09/29/22 12:38 Home Medications Medication Instructions Recorded Confirmed Type cetirizine 10 mg tablet (Zyrtec) 10 mg PO DAILY 03/20/22 10/18/22 History prenat.vits,nubia,wgx-pdxx-mcobs 1 tablet PO HS 09/29/22 10/18/22 History hydrocodone 5 mg-acetaminophen 325 1 tablet PO Q4H PRN pain #14 tabs 10/19/22 Rx mg tablet Laboratory Tests 10/19/22 04:47 Hgb 10.1 L g/dL (12.0-15.0) Hct 31.3 L % (37.0-47.0) Patient hx anesthesia problems: none Family hx anesthesia problems: none Results Review: All pre-operative results and documents have been reviewed as part of the pre-operative evaluation. [facility] Past Medical History Medical History Asthma Bipolar disorder Migraines Surgical History Surgical History History of orthopedic surgery Right knee scope History of tonsillectomy Family History Family History Father Diabetes mellitus Hypertension Social History Social History Smoking packs per day: 0.5 Smoking cigarettes per day: 10.0 Years smoked: 1.5 Smoking pack-years: 0.75 Smoking status: Former smoker Tobacco type: cigarettes Substance use: never Lack of Transportation: No Lack of Food: Never True Current Housing: I Have Housing Concerned About Future Housing: No Difficulty Paying Gas/Electric Bills: No Difficulty Paying for Meds: No Currently Unemployed: No Education: High School Diploma/GED Difficulty w/ Childcare or Family Care: No Gender identity (if verbalized by the patient): Female Spiritual care concerns: No Anes - Eval Final PreProcedure Day of Procedure 10/19/22 15:13 Patient weight: obese Heart: regular rate and rhythm Lungs: clear to auscultation Airway: Mallampati scale class II Neurological: alert and oriented Last oral intake: >/= 8 hours ASA classification: II Emergent: no Anesthetic plan: proceed Anesthesia type and monitoring: general ETT and standard monitoring Results Review: All pre-operative results and documents have been reviewed as part of the pre-operative evaluation. Informed Consent: The patient's anesthetic plan and its attendant risks and benefits were discussed with the patient/family/POA. Questions were solicited and answers provided to the satisfaction of the patient/family/POA.
[2022-10-19] MEDS: LACTATED RINGERS 1,000 ML 30 ML IV CONT (15:25)
[2022-10-19] MEDS: LIDOCAINE HCL 1% LOCAL INJ 20 ML VIAL 10 ML INFILTRATE (16:05)
--- NOTE | 2022-10-19 16:17 | P.OP_ITS ---
Procedure Note - Detailed Date of Procedure 10/19/22 Pre-op Diagnosis day 1/desires permanent sterilization Post-op Diagnosis Same Procedure Performed tubal ligation via modified [place] method Surgeon Jarad Farnsworth MD Anesthesia General Indications this is a 27-year-old multiparous day 1 who desires permanent sterilization Findings normal-appearing tubes bilaterally normal-appearing ovaries bilaterally size uterus Description of Procedure the patient was prepped draped in normal sterile fashion placed in the supine position. Under excellent general trach anesthesia the abdomen was entered i infra umbilical incision made. This was progressive layers of fascia. Fascia incised in upward outward fashion bilaterally underlying muscles sharp dissection parietal peritoneum 0 by Heike clamps this was sharply entered. The left fallopian tube was grasped in a good knuckle of tube was formed this was traversed to its fimbriated end read traversed to the midportion to assure this was left-sided tube. A good knuckle of tube was free tied with 0 chromic peritoneum peers between and the distal and proximal legs tied. The portion between cut passed off as portion of left fallopian tube. Hemostasis was assured there was returned to the abdomen. The opposite fallopian tube was grasped was midportion traversed to the fimbriated end read traversed the midportion to ensure tubal tissue. Free tie a knuckle of tube was formed followed by piercing the peritoneum between and free tied the distal proximal portions. This was cut passed off as portion of right fallopian tube. Hemostasis was assured this was returned the the laps were accounted for the fascia was closed with continuous running 0 Vicryl from lateral edge lateral edge. The skin closed with 4 Monocryl and glue. Blood loss estimated at5cc. All sponge, needle, instrument counts were correct. There were no immediate complications Estimated Blood Loss 5 Urine Output 0 Drains No Packing No Pathology Yes Complications No immediate complications Condition Stable Disposition PACU
[2022-10-19] MEDS: fentaNYL CITRATE INJ (*CRX) 100 MCG/2 ML VIAL 25 MCG IV PUSH ×8 (16:43→17:11)
--- NOTE | 2022-10-19 17:40 | PC.NURSE ---
1731- Pt returned to room 290 from PACU.
[2022-10-19] MEDS: ACETAMINOPHEN 325 MG TABLET 650 MG PO (19:00)
[2022-10-19] MEDS: IBUPROFEN 600 MG TABLET PO (23:33)
[2022-10-20] MEDS: ACETAMINOPHEN 325 MG TABLET 650 MG PO (02:00)
[2022-10-20 05:09] LABS: Hematocrit 33.1 % (37.0-47.0); Hemoglobin 10.2 g/dL (12.0-15.0)
--- NOTE | 2022-10-20 06:29 | PM.OBPNVD ---
OB - PN: Subj Subjective Date/time seen: 10/20/22 06:29 Patient comments: no complaints and pain well controlled baby status: doing well and nursing well OB - PN: Obj Data Labs 10/20/22 04:51 Labs: Laboratory Results - last 24 hr 10/20/22 04:51 Hgb 10.2 L Hct 33.1 L OB - PN A/P Plan day: 2 Plan: routine care, discharge home and follow up 6 weeks Time Spent With Patient Time: Total time spent is greater than 50% in coordination of care (as documented) at patient's floor/unit and/or counseling patient: Time with patient: less than 15 minutes Exam Const: General: cooperative, healthy appearing and comfortable Nutritional Appearance: average body habitus Orientation/consciousness: oriented to person, oriented to place and oriented to time HENMT: Head: normal to inspection Resp: Effort & Inspection: normal respiratory effort Cardio: Rate: regular rate Rhythm: regular rhythm Heart sounds: S1 normal heart sound present and S2 normal heart sound present GI: Inspection: normal to inspection and incision ( incisions clean dry and intact)
[2022-10-20 09:45] VITALS: BP 114/66; PULSE 75; RESP 16; TEMP 36.8; O2SAT 100
== END 2022-10-20 12:35 | disposition home or self-care (01) | DRG 798 ==
LOC: ANHLDR 08:44 → ANHOB2 17:52
PROVIDERS: Admitting Provider Obstetrics & Gynecology; PCP Family Medicine; Visit Provider Obstetrics & Gynecology
PROC: 0UB70ZZ Excision of Bilateral Fallopian Tubes, Open Approach (ICD-10-PCS; CPT 58605; principal; 2022-10-19 16:15)
DX: O99.824 Streptococcus B carrier state complicating childbirth (principal); Z37.0 Single live birth; Z3A.40 40 weeks gestation of pregnancy; Z30.2 Encounter for sterilization; Z87.891 Personal history of nicotine dependence
CPT/HCPCS: 36415; 85014; 85018; 85025; 86592; 86850; 86900; 86901; 88302; A9270; J0290; J0330; J1100; J2250; J2405; J2590; J2704; J2795; J3010; J7120

== ENCOUNTER 2023-02-20 12:41 | Outpatient (CLI) | payer OTHER, MEDICAID, SELFPAY ==
[2023-02-20 13:37] LABS: Basophils Percent Auto 0.3 % (0.2-1.2); Eosinophils Absolute Auto 0.2 K/mm3 (0-0.3); Eosinophils Percent Auto 2.1 % (0-4.4); Hematocrit 37.2 % (37.0-47.0); Hemoglobin 12.5 g/dL (12.0-15.0); Immature Granulocyte Absolute 0.03 K/mm3 (0.00-0.031); Immature Granulocyte Percent A 0.4 % (0-0.5); Lymphocytes Percent Auto 27.4 % (18.3-44.2); Mean Corpuscular HGB Conc 33.6 g/dl (32-36); Mean Corpuscular Hemoglobin 30.9 pg (26-34); Mean Corpuscular Volume 91.9 fl (80-100); Mean Platelet Volume 9.3 fl (7.4-10.4); Monocytes Absolute Auto 0.5 K/mm3 (0.1-0.6); Monocytes Percent Auto 6.1 % (2.6-8.5); Neutrophils Absolute Auto 4.9 K/mm3 (1.3-6.7); Neutrophils Percent Auto 63.7 % (45.5-73.1); Platelet Count Result 268 k/mm3 (150-375); Red Blood Count 4.05 M/mm3 (4.2-5.4); Red Cell Distribution Width 13.4 % (11.5-14.5); White Blood Count 7.7 K/mm3 (4.5-10.0)
== END 2023-02-20 12:42 | disposition home or self-care (01) ==
LOC: ANHSURGERY 12:45
PROVIDERS: PCP Family Medicine; Visit Provider Obstetrics & Gynecology
DX: N94.89 Other specified conditions associated with female genital organs and menstrual cycle (principal); Z01.818 Encounter for other preprocedural examination
CPT/HCPCS: 36415; 85025; 86850; 86900; 86901

== ENCOUNTER 2023-02-22 01:15 | Day surgery (SDC) | payer OTHER, MEDICAID, SELFPAY ==
[2023-02-15 10:08] VITALS: BMI 34.1
--- NOTE | 2023-02-15 10:12 | PC.NURSE ---
Report to the Outpatient Waiting Room, entrance under the green pavilion located off [facility], at time 11:30 on date 02/22/23. Planned Procedure Time: 1:30. Time changes happen often and if your time is changed the preop area will call you the afternoon before. - You and your visitor will be asked to self-screen and do not enter if you have any COVID symptoms. - A mask is optional within the hospital at this time. Patients may have clear liquids (water, carbonated beverages, clear teas, apple juice) until 3 hours prior to surgery (10:30) with a maximum of 20 ounces. - No food from midnight until time of surgery Take the following medications with a SIP of water the morning of surgery: NONE DO NOT STOP ANY OF YOUR OTHER PRESCRIPTION MEDICATIONS PRIOR TO SURGERY ?EXCEPT THE FOLLOWING Medications to discontinue per physician; N/A Date to take last dose: N/A Please no make-up, nail slovenian, hairspray, perfume, deodorant, or body powder the day of surgery. No jewelry (including any body piercings) or valuables the day of surgery, leave them at home. Please take a shower or bath the night before, or the morning of, surgery with an antibacterial soap. Wear comfortable, loose fitting clothing. - Jewelry must be removed prior to entering the operating room. Rings and piercings that are not removed may be cut off. - The hospital will not accept responsibility for valuables. - Please leave all valuables, including medications, at home the day of surgery. If you are going home after surgery, a licensed city route driver must drive you home. - NO public transportation without another adult if you receive anesthesia. - We recommend that an adult stay with you for 24 hours following discharge. - We also recommend that you do not drive, make important decision, drink alcoholic beverages, or take any drugs that were not prescribed by your health care provider for at least 24 hours after your discharge time. Follow any additional instructions given to you from your surgeon. If you or anyone in your household have experienced Covid symptoms in the past week, please notify your surgeon or the nurse liaison at the phone number below for possible testing. Telephone instructions given to PT - JUAN GOEL and asked if any additional questions and then verbalized understanding. Patient advised to call surgeon office or pre surgery nurse liaison [phone] if any additional questions.
--- NOTE | 2023-02-18 12:36 | PM.IMHP ---
H&P: HPI History of Present Illness Date/Time: 02/18/23 12:36 Chief Complaint: Pelvic pain/pelvic congestion Narrative: /27-year-old multiparous patient admitted for robotic hysterectomy and bilateral salpingectomy secondary to pelvic pain and pelvic congestion. The patient refuses to take any hormones. She has marked amount of pelvic congestion. She opts remove the uterus and the tubes. She understands this will make her permanently infertile. Risks and benefits reviewed including not exclusive of , aspiration pneumonia, bleeding, transfusion, perforation injury to bowel, bladder, ureters, or other internal organs with need for open laparotomy. She received the [employer]CO[employer] handout entitled hysterectomy. She had all questions answered and asked to proceed PMFSH Past Medical History Medical History Asthma Bipolar disorder Migraines Surgical History Surgical History History of orthopedic surgery Right knee scope History of tonsillectomy Family History Family History Father Diabetes mellitus Hypertension Social History Social History Smoking packs per day: 0.5 Smoking cigarettes per day: 10.0 Years smoked: 5 Smoking pack-years: 2.50 Smoking status: Former smoker Tobacco type: cigarettes Smoking end date: 05/27/21 Alcohol intake: never Substance use: never Substance use type: does not use Lack of Transportation: No Lack of Food: Never True Current Housing: I Have Housing Concerned About Future Housing: No Difficulty Paying Gas/Electric Bills: No Difficulty Paying for Meds: No Currently Unemployed: No Education: High School Diploma/GED Difficulty w/ Childcare or Family Care: No Living arrangements: with family Gender identity (if verbalized by the patient): Female Spiritual care concerns: No Meds Home Medications and Allergies Home Medications Medication Instructions Recorded Confirmed Type cetirizine 10 mg tablet (Zyrtec) 10 mg PO DAILY PRN Allergy Symptoms 03/20/22 02/15/23 History Allergies Allergy/AdvReac Type Severity Reaction Status Date / Time adhesive Allergy Unknown Unknown Verified 02/15/23 10:07 latex Allergy Unknown Unknown Verified 02/15/23 10:07 Exam Const: General: cooperative, healthy appearing and comfortable Nutritional Appearance: average body habitus Orientation/consciousness: oriented to person, oriented to place and oriented to time Resp: Effort & Inspection: normal respiratory effort Cardio: Rate: regular rate Rhythm: regular rhythm Heart sounds: S1 normal heart sound present and S2 normal heart sound present GI: Inspection: normal to inspection : External Female Exam: normal external appearance Speculum Exam - Vagina: normal appearance of the vagina Speculum Exam - Cervix: normal appearance of the cervix Bimanual exam- vagina & uterus: enlarged and Uterine tenderness Bimanual Exam- Adnexa, other: normal adnexae Assessment and Plan Assessment and plan (1) Pelvic congestion: Code(s): N94.89 - Other specified conditions associated with female genital organs and menstrual cycle Status: Acute (2) Pelvic pain: Code(s): R10.2 - Pelvic and perineal pain Status: Acute Plan Robotic total vaginal hysterectomy and bilateral salpingectomy
[2023-02-22] VITALS (9 sets, daily range): BP systolic 105–136; BP diastolic 62–81; PULSE 89–110; RESP 14–20; TEMP 36.1–36.7; O2SAT 95–100
--- NOTE | 2023-02-22 06:16 | WPDHPUPDATE1 ---
History and Physical Update Update Date/Time: 02/22/23 06:16 History and Physical has been reviewed, including an updated exam of the patient. There are NO changes in the patient's condition. Risks, benefits, and alternatives have been discussed and questions answered. Patient agrees to proceed with procedure.
[2023-02-22] MEDS: LACTATED RINGERS 1,000 ML 30 ML IV CONT ×2 (12:08→14:40)
[2023-02-22] MEDS: KETOROLAC 15 MG/ML VIAL (*BKC) IV PUSH (12:08)
[2023-02-22] MEDS: ACETAMINOPHEN 500 MG TABLET 1000 MG PO (12:08)
[2023-02-22] MEDS: SCOPOLAMINE 1.5 MG PATCH TRANSDERM (13:06)
[2023-02-22] MEDS: ceFAZolin 2 GM/D5W 50 ML 2 GM/50 ML BAG IVPB (13:08)
--- NOTE | 2023-02-22 14:18 | W.PM.PROC2 ---
Procedure Note - Detailed Date of Procedure 02/22/23 Pre-op Diagnosis pelvic congestion synd, Pain Post-op Diagnosis Same Procedure Performed Robotic total vaginal hysterectomy bilateral salpingectomy Surgeon Jarad Farnsworth MD Anesthesia General Indications This is a 27-year-old female with pelvic congestion severe pelvic pain with previous tubal ligation Findings Enlarged uterus with large vascular system. Normal-appearing ovaries. Tubes status post tubal ligation Description of Procedure Patient was prepped draped in the normal sterile fashion placed in dorsal lithotomy position. Under excellent general trach anesthesia weighted speculum placed in posterior fornix of vagina. Anterior lip of the cervix grasped with a single-tooth tenaculum. Cervix was dilated with serial dilators and sounded to 10cm. The 10. UTE and the 3. Cold cup were then placed inside the uterus and cervix the single-tooth and weighted speculum removed the bladder was emptied of clear urine with Lynne and gloves were changed. Supra and cervical incision was made. The Veress needle passed in the abdomen. Abdomen filled with CO2 gas 15mmmmofmercury. 8mm trocar advanced the abdomen. Downside visualized no injury seen. Gas reattached patient placed in Trendelenburg. Left and right lateral quadrant incisions were made 8mm trocars advanced under direct visualization assuring no injury right upper quadrant incision made the 8mm trocar advanced under direct visualization assuring no injury. The robot was docked. Attention was turned to the console. The left round ligament was grasped, burned, cut. Anterior bladder flap was formed by sharply dissecting peritoneum and reflecting the perineum to the opposite round ligament was clamped, burned, cut. Next the left fallopian tube was sharply dissected away from the ovarian complex and left at the or origin of the uterus. This was repeated with the right fallopian tube. The utero-ovarian ligament on the left was skeletonized clamping burning cutting to conserve the left ovary to the previous cut round ligament the utero-ovarian ligament on the right was clamped, burned, cut and brought to the level of previous cut round ligament conserving the right ovary. Cardinal broad ligaments on the left were serially skeletonized clamping burning cutting hugging the cervix and uterus to large tortuous vessels could be seen on the left these were individually clamped, burned, cut. In like fashion on the right the cardinal broad ligaments were skeletonized clamping burning cutting and hugging the cervix and uterus until uterine vessels be seen on the right. These were individually clamped, burned, cut. Blanching the uterus was noted. Colpotomy incision was made cervix uterus and tubes removed through the vagina. Vagina closed with continuous running 0 Vicryl from lateral edge to lateral edge. This was brought back to the midline. The robot was undocked after noting hemostasis. The gas removed from the abdomen the trocars removed the incisions closed with 4 Monocryl glue. Patient was awakened and carbon satisfactory condition. All sponge, needle, instrument counts were correct. Estimated Blood Loss 25 Drains No Packing No Pathology Yes Complications No immediate complications Condition Stable Disposition PACU
--- NOTE | 2023-02-22 14:23 | PM.DS ---
DS: Admitting Diagnosis Discharge Date 02/23/2023 Admitting Diagnosis Pelvic pain/pelvic congestion DS: Discharge Diagnosis Discharge Diagnosis (1) Pelvic pain: Code(s): R10.2 - Pelvic and perineal pain Status: Acute (2) Pelvic congestion: Code(s): N94.89 - Other specified conditions associated with female genital organs and menstrual cycle Status: Acute DS: Summary Hospital Course Reason for hospitalization: Patient was admitted for robotic total vaginal directly and bilateral salpingectomy on 02/22/2023 Hospital Course: Patient underwent the above-named procedure on 02/22/2023. Her hospital course unremarkable. She remained afebrile. She was up, voiding without difficulty, ambulating, eating regular diet, and general without complaints. Time Spent with Patient Time attestation: Total time spent providing and/or coordinating discharge services: Exam Const: General: cooperative, healthy appearing and comfortable Nutritional Appearance: average body habitus Orientation/consciousness: oriented to person, oriented to place and oriented to time HENMT: Head: normal to inspection Resp: Effort & Inspection: normal respiratory effort Cardio: Rate: regular rate Rhythm: regular rhythm Heart sounds: S1 normal heart sound present and S2 normal heart sound present GI: Inspection: normal to inspection and incision (Wounds are clean dry and intact) DS: Data Data Completed and Pending Pending studies at discharge: Pending at discharge 02/22/23 14:05 Surgical [PTH] Routine Discharge Plan Discharge Patient Disposition: Home, Self-Care Discharge Instructions: Call or return if temperature above 100.4? F, increased abdominal pain, increased vaginal bleeding or any new problems. Patient Instructions: Laparoscopic Hysterectomy (DC) Stand Alone Forms: General Discharge Instructions Follow-up/Referrals: Jarad Garcia MD [Physician] - 2 Weeks Discharge Medications: New hydrocodone-acetaminophen 5-325 mg tablet 1 tablet PO Q4H PRN (Reason: pain) Qty: 20 0RF Continued cetirizine [Zyrtec] 10 mg Tablet 10 mg PO DAILY PRN (Reason: Allergy Symptoms)
[2023-02-22] MEDS: fentaNYL CITRATE INJ (*CRX) 100 MCG/2 ML VIAL 25 MCG IV PUSH (15:45)
[2023-02-22] MEDS: ONDANSETRON INJ 4 MG/2 ML VIAL IV PUSH (15:50)
[2023-02-22] MEDS: DEXTROSE 5%/LACTATED RINGERS 1,000 ML 125 ML IV CONT (17:19)
[2023-02-23 04:50] VITALS: BP 93/40; PULSE 82; RESP 16; TEMP 36.3
[2023-02-23] MEDS: SIMETHICONE 80 MG TAB.CHEW PO ×2 (05:03→07:26)
[2023-02-23 05:23] LABS: Basophils Percent Auto 0.3 % (0.2-1.2); Eosinophils Absolute Auto 0.1 K/mm3 (0-0.3); Eosinophils Percent Auto 0.7 % (0-4.4); Hematocrit 34.1 % (37.0-47.0); Hemoglobin 11.2 g/dL (12.0-15.0); Immature Granulocyte Absolute 0.06 K/mm3 (0.00-0.031); Immature Granulocyte Percent A 0.5 % (0-0.5); Lymphocytes Absolute Auto 1.59 K/mm3 (0.9-3.2); Lymphocytes Percent Auto 13.6 % (18.3-44.2); Mean Corpuscular HGB Conc 32.8 g/dl (32-36); Mean Corpuscular Hemoglobin 30.8 pg (26-34); Mean Corpuscular Volume 93.7 fl (80-100); Mean Platelet Volume 9.4 fl (7.4-10.4); Monocytes Absolute Auto 0.7 K/mm3 (0.1-0.6); Neutrophils Absolute Auto 9.3 K/mm3 (1.3-6.7); Neutrophils Percent Auto 78.9 % (45.5-73.1); Platelet Count Result 254 k/mm3 (150-375); Red Blood Count 3.64 M/mm3 (4.2-5.4); Red Cell Distribution Width 13.4 % (11.5-14.5); White Blood Count 11.7 K/mm3 (4.5-10.0)
[2023-02-23] MEDS: ENOXAPARIN 40 MG/0.4 ML SYRINGE SUB-Q (07:19)
[2023-02-23] MEDS: DOCUSATE SODIUM 100 MG CAPSULE PO (07:20)
[2023-02-23] MEDS: IBUPROFEN 600 MG TABLET PO (07:26)
[2023-02-23 08:00] VITALS: PULSE 77; RESP 16; O2SAT 96
[2023-02-23 08:21] VITALS: BP 106/71; PULSE 77; RESP 16; TEMP 36.4
--- NOTE | 2023-02-23 08:32 | PM.GYNPNOP ---
STOREROOM ATTENDANT - A/P Assessment and plan (1) Pelvic pain: Code(s): R10.2 - Pelvic and perineal pain Status: Acute Assessment and Plan: A: POD#1, doing well. P: Home to f/u 2 weeks. (2) Pelvic congestion: Code(s): N94.89 - Other specified conditions associated with female genital organs and menstrual cycle Status: Acute Postoperative Procedures: Procedures Operation Date: 02/22/23 13:30 Actual Procedure Side Surgeon p Robotic Assisted Total Vaginal Hysterectomy with Bilateral Salpingectomy Bilateral Jarad Farnsworth MD Time Spent With Patient Time: Total time spent is greater than 50% in coordination of care (as documented) at patient's floor/unit and/or counseling patient: Time with patient: less than 15 minutes STOREROOM ATTENDANT- PN:Subj Post-Op Subjective Date/time seen: 02/23/23 08:32 Interval history: Pain OK. Tolerating diet. Voiding. Would like to go home. Exam Narrative: AVSS I/O OK ABD soft, nontender. Incisions c/d/i. EXT nontender STOREROOM ATTENDANT - PN: Obj Data Vital Signs Vital Signs: Vital Signs - 24 hr 02/22/23 12:21 02/22/23 14:40 02/22/23 14:55 Temperature 36.2 C L 36.1 C L Pulse Rate 89 99 110 H Respiratory Rate 18 18 20 Blood Pressure 116/72 121/66 136/74 Pulse Oximetry 99 100 100 Oxygen Delivery Room Air Simple Face Mask Simple Face Mask Oxygen Flow Rate 8 8 02/22/23 15:10 02/22/23 15:25 02/22/23 15:40 Temperature Pulse Rate 108 H 102 H 97 Respiratory Rate 20 18 16 Blood Pressure 127/81 121/72 119/76 Pulse Oximetry 100 96 100 Oxygen Delivery Simple Face Mask Room Air Room Air Oxygen Flow Rate 8 02/22/23 15:55 02/22/23 16:15 02/22/23 18:50 Temperature 36.5 C 36.7 C Pulse Rate 101 H 94 97 Respiratory Rate 14 18 16 Blood Pressure 122/80 114/63 105/62 Pulse Oximetry 95 96 Oxygen Delivery Room Air Oxygen Flow Rate 02/23/23 04:50 02/23/23 08:21 Temperature 36.3 C L 36.4 C L Pulse Rate 82 77 Respiratory Rate 16 16 Blood Pressure 93/40 L 106/71 Pulse Oximetry Oxygen Delivery Oxygen Flow Rate Intake/Output Intake/Output: Intake & Output 02/20/23 02/21/23 02/22/23 02/23/23 23:59 23:59 23:59 23:59 Intake Total 250 Output Total 200 400 Balance 50 -400 Meds/Results Medications: Active Medications Generic Name Dose Route Start Last Admin Trade Name Freq PRN Reason Stop Dose Admin Hydrocodone Bitart/Acetaminophen 1 tab 02/22/23 16:04 Hydrocodone/Acetaminophen (*Crx) 5-325 Mg Tablet PO Q3H PRN Pain Rated 5 or Less Hydrocodone Bitart/Acetaminophen 1 tab 02/22/23 16:04 Hydrocodone/Acetaminophen (*Crx) 10-325 Mg Tablet PO Q3H PRN Pain Rated 6 or Greater Docusate Sodium 100 mg 02/22/23 17:00 02/23/23 07:20 Docusate Sodium 100 Mg Capsule PO 100 mg BID TAVO Administration Enoxaparin Sodium 40 mg 02/23/23 09:00 02/23/23 07:19 Enoxaparin 40 Mg/0.4 Ml Syringe SUB-Q 40 mg DAILY TAVO Administration Ibuprofen 600 mg 02/22/23 16:04 02/23/23 07:26 Ibuprofen 600 Mg Tablet PO 600 mg Q6H PRN Administration Cramping Ketorolac Tromethamine 30 mg 02/22/23 16:04 Ketorolac 30 Mg/Ml Vial (*Bkc) IV PUSH 02/27/23 16:03 Q6H PRN Pain Rated 4-6 Naloxone HCl 0.1 mg 02/22/23 16:04 Naloxone Hcl 0.4 Mg/Ml Vial IV PUSH Q2M PRN Respiratory rate less than 10 Ondansetron HCl 4 mg 02/22/23 16:04 Ondansetron Inj 4 Mg/2 Ml Vial IV PUSH Q6H PRN Nausea And Vomiting Simethicone 80 mg 02/22/23 16:04 02/23/23 07:26 Simethicone 80 Mg Tab.Chew PO 80 mg Q2H PRN Administration Gas Labs 02/23/23 04:59 Labs: Laboratory Results - last 24 hr 02/23/23 04:59 WBC 11.7 H RBC 3.64 L Hgb 11.2 L Hct 34.1 L MCV 93.7 MCH 30.8 MCHC 32.8 RDW 13.4 Plt Count 254 MPV 9.4 Immature Gran % (Auto) 0.5 Neut % (Auto) 78.9 H Lymph % (Auto) 13.6 L [place] % (Auto) 6.0 Eos % (Aut
--- NOTE | 2023-02-23 10:21 | P.PNAN_ITS ---
Anes - Prog Note Post-Op Date/Time: 02/23/23 10:21 Cardiovascular status: normal Respiratory status: normal Airway patency: baseline Mental status: baseline Post-Op hydration status: normal Vital Signs: Last Vital Signs Temp 36.4 C L 02/23/23 08:21 Pulse 77 02/23/23 08:21 Resp 16 02/23/23 08:21 BP 106/71 02/23/23 08:21 Pulse Ox 96 02/23/23 08:00 O2 Del Method Room Air 02/23/23 08:00 O2 Flow Rate 8 02/22/23 15:10 Pain Score (VAS): 07/06 I/O: Intake & Output 02/22/23 02/23/23 02/23/23 23:59 07:59 15:59 Intake Total 200 240 Output Total 200 400 Balance 0 -400 240 Laboratory Tests 02/23/23 04:59 02/23/23 04:59 WBC 11.7 H RBC 3.64 L Hgb 11.2 L Hct 34.1 L MCV 93.7 MCH 30.8 MCHC 32.8 RDW 13.4 Plt Count 254 MPV 9.4 Immature Gran % (Auto) 0.5 Neut % (Auto) 78.9 H Lymph % (Auto) 13.6 L [place] % (Auto) 6.0 Eos % (Auto) 0.7 Baso % (Auto) 0.3 Lymph # (Auto) 1.59 [place] # (Auto) 0.7 H Eos # (Auto) 0.1 Baso # (Auto) 0.0 Abs Immat Gran (auto) 0.06 H Absolute Neuts (auto) 9.3 H Absolute Nucleated RBC 0.0 Nucleated RBC % 0.0 Post-procedural complaints: none Patient Feedback: Patient satisfied with anesthetic care.
== END 2023-02-23 10:35 | disposition home or self-care (01) ==
LOC: ANHSURGERY 11:28 → ANHOB2 16:38
PROVIDERS: PCP Family Medicine; Visit Provider Obstetrics & Gynecology
PROC: (CPT 58552; principal; 2023-02-22 13:30)
DX: N94.89 Other specified conditions associated with female genital organs and menstrual cycle (principal); R10.2 Pelvic and perineal pain; N72 Inflammatory disease of cervix uteri; Z87.891 Personal history of nicotine dependence
CPT/HCPCS: 58552; S2900; 36415; 85025; 86850; 86900; 86901; 88307; 99199; A9270; J0690; J1100; J1170; J1650; J1885; J2250; J2405; J2704; J3010; J7030; J7120; J7121

== ENCOUNTER 2023-11-26 07:37 | Day surgery (SDC) | payer MEDICAID, SELFPAY ==
[2023-11-13 09:53] VITALS: BMI 32.9
[2023-11-14 10:11] VITALS: BMI 34.5
--- NOTE | 2023-11-25 14:01 | PM.HPGS ---
History of Present Illness History of Present Illness Consent: Risks, benefits, and alternatives have been discussed and questions answered. Patient agrees to proceed with procedure. Chief complaint: Constipation, diarrhea Narrative: Lillian Feng is a 28 year old female who has had very irregular bowel movements, trending from constipation to diarrhea and she also is having pelvic pain. After last , she lost all of her weight that she had gained; subsequently she has regained that. She has been tested for celiac disease Review of Systems Review of Systems: All systems reviewed & are unremarkable except as noted in HPI and below PMFSH Past Medical History Medical History Asthma Bipolar disorder Migraines Surgical History Surgical History History of orthopedic surgery Right knee scope History of tonsillectomy Family History Family History Father Diabetes mellitus Hypertension Social History Social History Smoking packs per day: 0.5 Smoking cigarettes per day: 10.0 Years smoked: 5 Smoking pack-years: 2.50 Smoking status: Never smoker Tobacco type: cigarettes Smoking end date: 05/27/21 Alcohol intake: never Substance use: never Substance use type: does not use Lack of Transportation: No Lack of Food: Never True Current Housing: I Have Housing Concerned About Future Housing: No Difficulty Paying Gas/Electric Bills: No Difficulty Paying for Meds: No Currently Unemployed: No Education: High School Diploma/GED Difficulty w/ Childcare or Family Care: No Living arrangements: with family Gender identity (if verbalized by the patient): Female Spiritual care concerns: No Meds Home Medications and Allergies Home Medications Medication Instructions Recorded Confirmed Type No Home Medications 11/14/23 11/26/23 History Allergies Allergy/AdvReac Type Severity Reaction Status Date / Time adhesive Allergy Unknown Unknown Verified 11/26/23 08:20 latex Allergy Unknown Unknown Verified 11/26/23 08:20 Exam Resp: Auscultation: clear to auscultation bilaterally Cardio: Rate: regular rate Rhythm: regular rhythm GI: GI Palp: Yes Soft to palpation and No Tenderness to palpation present (GI) Assessment and Plan Assessment and plan (1) Change in bowel habits: Code(s): R19.4 - Change in bowel habit Status: Acute Assessment and Plan: Colonoscopy with possible biopsy or polypectomy or cautery or injection of substances.
[2023-11-26 08:21] VITALS: BP 118/76; PULSE 62; RESP 16; TEMP 36.4; O2SAT 99
[2023-11-26] MEDS: LACTATED RINGERS 1,000 ML 150 ML IV CONT (08:25)
--- NOTE | 2023-11-26 08:42 | P.PNAN_ITS ---
Anes - Initial Pre Proc Eval Procedure: Operation Date: 11/26/23 09:30 Proposed Procedures p Diagnostic Colonoscopy - Tutu Wood MD Date/Time: 11/26/23 08:42 Surgeon: Tutu Wood MD Pre Op Diagnosis: Constipation, diarrhea Patient Data Age: 28 Gender: F Height: 1.7 m Weight: 92.2 kg Last Vital Signs Temp 36.4 C L 11/26/23 08:21 Pulse 62 11/26/23 08:21 Resp 16 11/26/23 08:21 BP 118/76 11/26/23 08:21 Pulse Ox 99 11/26/23 08:21 O2 Del Method Room Air 11/26/23 08:21 Allergies Allergy/AdvReac Type Severity Reaction Status Date / Time adhesive Allergy Unknown Unknown Verified 11/26/23 08:20 latex Allergy Unknown Unknown Verified 11/26/23 08:20 Home Medications Medication Instructions Recorded Confirmed Type No Home Medications 11/14/23 11/26/23 History Patient hx anesthesia problems: none Family hx anesthesia problems: none Results Review: All pre-operative results and documents have been reviewed as part of the pre- operative evaluation. [facility] Past Medical History Medical History Asthma Bipolar disorder Migraines Surgical History Surgical History (Updated 11/26/23 @ 08:43 by Jarad Ny MD) H/O: hysterectomy History of orthopedic surgery Right knee scope History of tonsillectomy Family History Family History Father Diabetes mellitus Hypertension Social History Social History Smoking packs per day: 0.5 Smoking cigarettes per day: 10.0 Years smoked: 5 Smoking pack-years: 2.50 Smoking status: Never smoker Tobacco type: cigarettes Smoking end date: 05/27/21 Alcohol intake: never Substance use: never Substance use type: does not use Lack of Transportation: No Lack of Food: Never True Current Housing: I Have Housing Concerned About Future Housing: No Difficulty Paying Gas/Electric Bills: No Difficulty Paying for Meds: No Currently Unemployed: No Education: High School Diploma/GED Difficulty w/ Childcare or Family Care: No Living arrangements: with family Gender identity (if verbalized by the patient): Female Spiritual care concerns: No Anes - Eval Final PreProcedure Day of Procedure 11/26/23 08:42 Patient weight: overweight Heart: regular rate and rhythm Lungs: clear to auscultation Airway: Mallampati scale class II Neurological: alert and oriented Last oral intake: >/= 8 hours ASA classification: II Emergent: no Anesthetic plan: proceed Anesthesia type and monitoring: general GIVS and standard monitoring Results Review: All pre-operative results and documents have been reviewed as part of the pre- operative evaluation. Informed Consent: The patient's anesthetic plan and its attendant risks and benefits were discussed with the patient/family/POA. Questions were solicited and answers provided to the satisfaction of the patient/family/POA.
[2023-11-26 09:26] VITALS: BP 110/77; PULSE 66; RESP 16; O2SAT 99
[2023-11-26 09:36] VITALS: BP 107/63; PULSE 62; RESP 16; O2SAT 99
--- NOTE | 2023-11-26 09:36 | WPDANESPN ---
Anes - Prog Note Post-Op Date/Time: 11/26/23 09:36 Cardiovascular status: normal Respiratory status: normal Airway patency: baseline Mental status: baseline Post-Op hydration status: normal Vital Signs: Last Vital Signs Temp 36.4 C L 11/26/23 08:21 Pulse 62 11/26/23 08:21 Resp 16 11/26/23 08:21 BP 118/76 11/26/23 08:21 Pulse Ox 99 11/26/23 08:21 O2 Del Method Room Air 11/26/23 08:21 Pain Score (VAS): 0/10 I/O: Intake & Output 11/25/23 11/26/23 11/26/23 23:59 07:59 15:59 Intake Total 300 Balance 300 Patient Feedback: Patient satisfied with anesthetic care.
[2023-11-26 09:46] VITALS: BP 114/76; PULSE 84; RESP 18; O2SAT 99
== END 2023-11-26 10:02 | disposition home or self-care (01) ==
PROVIDERS: PCP Nurse Practitioner Family; Visit Provider Internal Medicine Gastroenterology
PROC: 0DJD8ZZ Inspection of Lower Intestinal Tract, Via Natural or Artificial Opening Endoscopic (ICD-10-PCS; CPT 45378; principal; 2023-11-26 09:30)
DX: R19.7 Diarrhea, unspecified (principal); K59.00 Constipation, unspecified
CPT/HCPCS: 45378